=== PATIENT | female | born 1985 | race Caucasian/White ===

== ENCOUNTER 2019-12-27 17:13 | Emergency (ER) | payer MEDICAID, SELFPAY ==
[2019-12-27 17:14] VITALS: BP 117/79; PULSE 73; RESP 15; TEMP 36.7; O2SAT 96; BMI 25.3
--- NOTE | 2019-12-27 17:58 | RAD_ITS ---
STUDY: X-RAY - LEFT KNEE REASON FOR EXAM: Female, 34 years old. PATIENT FELL YESTERDAY. TECHNIQUE: 4 view(s) of the knee. COMPARISON: None. FINDINGS: No acute fracture, dislocation or osseous destruction. No significant joint space narrowing. No significant productive changes. No significant soft tissue swelling. IMPRESSION: Normal x-ray examination of the knee. Electronically Signed: Marco Antonio Varela, at 20:31 EST Tel , Service support , RAD/Knee 4 or More Views
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
--- NOTE | 2019-12-27 17:59 | RAD_ITS ---
STUDY: X-RAY - RIGHT KNEE REASON FOR EXAM: Female, 34 years old. PATIENT FELL YESTERDAY. TECHNIQUE: 4 view(s) of the knee. COMPARISON: None. FINDINGS: No acute fracture, dislocation or osseous destruction. No significant joint space narrowing. No significant productive changes. No significant soft tissue swelling. IMPRESSION: Normal x-ray examination of the knee. Electronically Signed: Marco Antonio Varela, at 19:56 EST Tel , Service support , RAD/Knee 4 or More Views
--- NOTE | 2019-12-27 17:59 | RAD_ITS ---
STUDY: X-RAY - LEFT FOOT CLINICAL: Female, 34 years old. PATIENT FELL YESTERDAY. TECHNIQUE: 3 view(s) of the foot. COMPARISON: None. FINDINGS: No acute fracture, dislocation or osseous destruction. No significant joint space narrowing. No significant productive changes. No significant soft tissue swelling. IMPRESSION: Normal x-ray examination of the foot. Electronically Signed: Marco Antonio Varela, at 20:47 EST Tel , Service support , RAD/Foot min 3 Views
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
[2019-12-27] MEDS: HYDROcodone Bitartrate/Apap 5/325 Tablet PO (18:16)
--- NOTE | 2019-12-27 18:25 | RAD_ITS ---
STUDY: X-RAY - LEFT ANKLE REASON FOR EXAM: Female, 34 years old. PATIENT FELL YESTERDAY. TECHNIQUE: 3 view(s) of the ankle. COMPARISON: None. FINDINGS: No acute fracture, dislocation or osseous destruction. No significant joint space narrowing. No significant productive changes. Moderate diffuse soft tissue swelling. IMPRESSION: Normal x-ray examination of the ankle. Electronically Signed: Marco Antonio Varela, at 20:46 EST Tel , Service support , RAD/Ankle min 3 Views
[2019-12-27 20:48] VITALS: BP 118/80; PULSE 80; RESP 15; O2SAT 98
== END 2019-12-27 20:49 | disposition home or self-care (01) ==
PROVIDERS: Emergency Provider Emergency Medicine; PCP Internal Medicine
DX: S82.831A Other fracture of upper and lower end of right fibula, initial encounter for closed fracture (principal); K21.9 Gastro-esophageal reflux disease without esophagitis; F17.200 Nicotine dependence, unspecified, uncomplicated; X50.1XXA Overexertion from prolonged static or awkward postures, initial encounter; Y93.01 Activity, walking, marching and hiking; Y92.009 Unspecified place in unspecified non-institutional (private) residence as the place of occurrence of the external cause; Y99.8 Other external cause status
CPT/HCPCS: 73564; 73610; 73630; 99283

== ENCOUNTER 2020-07-16 00:33 | Emergency (ER) | payer MEDICAID, SELFPAY ==
[2020-07-16 00:34] VITALS: BP 124/85; PULSE 105; RESP 16; TEMP 36.8; O2SAT 98; BMI 24.2
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
[2020-07-16] MEDS: Naproxen 500 MG Tablet PO (01:15)
[2020-07-16] MEDS: Gentamicin Sulfate 1 OPTH.BTL 2 DRP RIGHT EYE (01:36)
[2020-07-16] MEDS: Clindamycin HCl 150 MG Capsule 450 MG PO (01:36)
[2020-07-16] MEDS: Tetracaine 0.5% Ophthalmic Bottle 1 DRP RIGHT EYE (01:40)
[2020-07-16] MEDS: Fluorescein 1 MG STRIP 1 STRIP RIGHT EYE (01:40)
== END 2020-07-16 01:41 | disposition home or self-care (01) ==
PROVIDERS: Emergency Provider Emergency Medicine; PCP Internal Medicine
DX: H10.9 Unspecified conjunctivitis (principal); K21.9 Gastro-esophageal reflux disease without esophagitis; F17.200 Nicotine dependence, unspecified, uncomplicated
CPT/HCPCS: 99283

== ENCOUNTER 2020-10-31 08:26 | Emergency (ER) | payer MEDICAID, SELFPAY ==
[2020-10-31 08:15] VITALS: BP 134/107; PULSE 110; RESP 19; TEMP 36.7; O2SAT 99; BMI 23.1
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
--- NOTE | 2020-10-31 08:28 | EKG12_ITS ---
Test Reason : OVERDOSE Blood Pressure : / mmHG Vent. Rate : 078 BPM Atrial Rate : 078 BPM P-R Int : 158 ms QRS Dur : 084 ms QT Int : 404 ms P-R-T Axes : 068 056 054 degrees QTc Int : 460 ms Normal sinus rhythm Normal ECG Confirmed by AMANDO LOWERY, MADDIE ([id number]), newspaper or periodical editor LUKE SANDOVAL ([id number]) on 11/07/2020 9:09:48 AM Referred By: SERGE Confirmed By:HARRIS GOEL MD
--- NOTE | 2020-10-31 08:36 | NURSING ---
NO OLD EKGS
[2020-10-31] MEDS: 0.9% Normal Saline 1,000 ML 1000 ML IV (08:45)
[2020-10-31] MEDS: Ondansetron 4 MG/2 ML Vial IM (08:45)
[2020-10-31 08:54] LABS: Absolute Lymphocyte Count 1.92 X10^3/uL (0.83-4.51); Absolute Neutrophil Count 2.3 X10^3/uL (2.0-7.7); Basophil# 0.06 X10^3/uL; Basophil% 1.2 % (0-1); Eosinophil# 0.23 X10^3/uL; Eosinophils% 4.7 % (0-5); Hematocrit 48.7 % (37-47); Hemoglobin 15.8 g/dL (12.0-15.0); Lymphocyte # 1.92 X10^3/ul (4.0); Lymphocyte % 38.9 % (19-41); Mean Corp Hgb Conc 32.4 g/dL (32-36); Mean Corpuscular Hgb 31.7 pg (27.0-32.0); Mean Corpuscular Volume 97.8 fL (81-99); Mean Platelet Vol. 10.1 fl (6.2-12.0); Monocyte% 8.1 % (0-10); NRBC Flagged by Analyzer 0 % (0-5); Neutrophil # 2.29 X10^3/uL (2.7-7.7); Neutrophil % 46.3 % (47-70); Platelet Count 205 K/mm3 (150-450); RBC Distribution Width CV 14.3 % (11.6-14.6); RBC Distribution Width SD 47.8 fl (35.1-43.9); Red Blood Count 4.98 M/mm3 (4.2-5.4); White Blood Count 4.9 K/mm3 (4.4-11.0)
[2020-10-31 09:13] LABS: Anion Gap 6 (5-15); BUN 19 mg/dL (7-18); BUN/Creat Ratio 13.5 RATIO (10-20); Calcium,Total 8.3 mg/dL (8.5-10.1); Chloride 102 mmol/L (98-107); Creatinine, Serum 1.41 mg/dL (0.55-1.02); EST Glomerular Filtration Rate 46 mL/min (>60); Est Glom Filt Rate - Afr Amer 55 mL/min (>60); Estimated Creatinine Clearance 53.13 ml/min; Glucose 258 mg/dL (74-106); Potassium 4.3 mmol/L (3.5-5.1); Sodium Level 137 mmol/L (136-145)
--- NOTE | 2020-10-31 09:23 | RAD_ITS ---
STUDY: X-RAY CHEST REASON FOR EXAM: Female, 35 years old. Overdose TECHNIQUE: Single AP portable view of the chest. COMPARISON: None. FINDINGS: The lungs are clear and expanded. There is no demonstrated pleural abnormality. Normal size heart. Normal mediastinum and helga. Normal visualized pulmonary arteries. Normal visualized aortic arch and descending thoracic aorta. Normal visualized thoracic spine. Normal visualized ribs, clavicles, and shoulders. There is no demonstrated abnormality of the visualized soft tissue structures of the upper abdomen. RAD/Chest 1 View (Portable) IMPRESSION: Normal x-ray examination of the chest. Electronically Signed: Mega Rosales, at 10:10 EST Tel , Service support ,
[2020-10-31 10:21] LABS: Alcohol, Blood (Medical)-Serum < 3.0 mg/dL
[2020-10-31 10:33] LABS: Amphetamine Urine VISTA POSITIVE (<1000 ng/mL); Barbiturate Urine VISTA NEGATIVE (< 200 ng/mL); Benzodiazepine Urine VISTA NEGATIVE (< 200 ng/mL); Cocaine Urine VISTA NEGATIVE (< 300 ng/mL); Ecstacy Urine VISTA NEGATIVE (< 500 ng/mL); Methadone Urine VISTA NEGATIVE (< 300 ng/mL); PCP Urine VISTA NEGATIVE (< 25 ng/mL); THC Urine VISTA POSITIVE (< 50 ng/mL); Vista UDS pH Range 6
[2020-10-31 10:51] VITALS: BP 133/93; PULSE 90; RESP 23; O2SAT 100
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
--- NOTE | 2020-10-31 11:31 | CM.ED ---
Social Work Telephone call received from [facility], Jensen Go. Jensen able to confirm through talking with [facility] court that Ana Velarde has custody of patients children. Jensen reports will put information in system as informational but there will be nothing done with it. Hannah Salamanca MSW, BRIDGETTE-S
--- NOTE | 2020-10-31 11:45 | EKG12_ITS ---
Test Reason : REPEAT EKG Blood Pressure : / mmHG Vent. Rate : 057 BPM Atrial Rate : 057 BPM P-R Int : 148 ms QRS Dur : 084 ms QT Int : 448 ms P-R-T Axes : 062 066 055 degrees QTc Int : 436 ms Sinus bradycardia Otherwise normal ECG Confirmed by AMANDO LOWERY, MADDIE ([id number]), news assignment editor LUKE SANDOVAL ([id number]) on 11/07/2020 9:09:37 AM Referred By: SERGE Confirmed By:HARRIS GOEL MD
--- NOTE | 2020-10-31 12:16 | CM.ED ---
Social Work This social services assistant following up with patient in room for further support and to provide [facility] and [facility] resources. This social services assistant completing suicide assessment with patient. Patient denies suicidal thoughts and to have a desire to live. Patient states I want to get better for my kids. Patient reports main concern now is finding a ride back to [facility] house in [place]. Patient is currently pending further lab work. This social services assistant collaborating with patient and medical team and will follow up with patient to assist with transportation when/if patient is medically cleared for discharge. Patient provided with [facility] and [facility] resources. Will continue to follow. Hannah KWOK, STEFFEN
--- NOTE | 2020-10-31 12:38 | CM.ED ---
Social Work Per nursing staff patient will be ready for discharge by 13:30. Patient unsure of address but knows that it is on [address]. Patient reports to be the same address that patient was picked up by EMS which is [address] [place] [address]. Patient agreeable to this secondary social studies teacher setting up transportation through [facility] transportation services. Telephone call to [facility] Transportation, Kimber. Pick-up time set up for 13:30. Medical team and patient updated. Hannah KWOK, STEFFNE
[2020-10-31 13:11] VITALS: BP 128/96; PULSE 85; RESP 11; O2SAT 100
[2020-10-31 13:12] VITALS: BP 132/59; PULSE 95; RESP 22; O2SAT 97
--- NOTE | 2020-10-31 13:31 | CM.ED ---
Social Work Updated by nursing staff that patient friend is now coming to apple picking supervisor patient. Transportation canceled through [facility] Transportation. Hannah KWOK, GLENNS
== END 2020-10-31 13:17 | disposition home or self-care (01) ==
PROVIDERS: Emergency Provider Student in an Organized Health Care Education/Training Program
DX: R07.9 Chest pain, unspecified (principal); T40.1X1A Poisoning by heroin, accidental (unintentional), initial encounter; F15.10 Other stimulant abuse, uncomplicated; F12.10 Cannabis abuse, uncomplicated; K21.9 Gastro-esophageal reflux disease without esophagitis; F17.200 Nicotine dependence, unspecified, uncomplicated
CPT/HCPCS: 71045; 80048; 80307; 80320; 84484; 85025; 93005; 96360; 96361; 96372; 99285; J7030; A4216; G0480; J2405

== ENCOUNTER 2022-02-17 23:58 | Emergency (ER) | payer MEDICAID, SELFPAY ==
[2022-02-17 23:59] VITALS: BP 132/111; PULSE 102; RESP 16; TEMP 36.5; O2SAT 98; BMI 24.7
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
[2022-02-18] MEDS: HYDROcodone Bitartrate/Apap 5/325 Tablet PO (00:23)
[2022-02-18 00:33] LABS: Absolute Lymphocyte Count 1.89 X10^3/uL (0.83-4.51); Absolute Neutrophil Count 2.6 X10^3/uL (2.0-7.7); Basophil# 0.06 X10^3/uL; Basophil% 1.2 % (0-1); Eosinophils% 1.9 % (0-5); Hematocrit 44.3 % (37-47); Hemoglobin 14.4 g/dL (12.0-15.0); Lymphocyte # 1.89 X10^3/ul (0.83-4.51); Lymphocyte % 36.7 % (19-41); Mean Corp Hgb Conc 32.5 g/dL (32-36); Mean Corpuscular Hgb 29.8 pg (27.0-32.0); Mean Corpuscular Volume 91.5 fL (81-99); Mean Platelet Vol. 9.4 fl (6.2-12.0); Monocyte# 0.45 X10^3/uL; Monocyte% 8.7 % (0-10); NRBC Flagged by Analyzer 0 % (0-5); Neutrophil # 2.63 X10^3/uL (2.7-7.7); Neutrophil % 51.1 % (47-70); Platelet Count 306 K/mm3 (150-450); RBC Distribution Width CV 14.9 % (11.6-14.6); RBC Distribution Width SD 50.4 fl (35.1-43.9); Red Blood Count 4.84 M/mm3 (4.2-5.4); White Blood Count 5.2 K/mm3 (4.4-11.0)
[2022-02-18 01:20] LABS: Internal QC Validated? YES +Cl - CLEAR BKGD; Pregnancy, Serum, hCG Quali. NEGATIVE Negative
[2022-02-18 01:28] LABS: Anion Gap 5 (5-15); BUN 10 mg/dL (7-18); BUN/Creat Ratio 12.4 RATIO (10-20); Chloride 112 mmol/L (98-107); Creatinine, Serum 0.81 mg/dL (0.55-1.02); EST Glomerular Filtration Rate 86 mL/min (>60); Est Glom Filt Rate - Afr Amer 104 mL/min (>60); Glucose 93 mg/dL (74-106); Potassium 4.5 mmol/L (3.5-5.1); Sodium Level 139 mmol/L (136-145)
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
[2022-02-18 01:44] LABS: Color, Urine Yellow (Yellow); Glucose, Dipstick Normal (Normal); Ketone-Dipstick Negative (Negative); Leukocyte Esterase-Dipstick Negative /ul (Negative); Mucous, Urine 0 SEEN /hpf (<or=2+); Nitrite-Dipstick Negative (Negative); Occult Blood-Urine 10 /ul (Negative); Protein-Dipstick Negative (Negative); Red Blood Cells-Urine 0 SEEN /hpf (0-5); Specific Gravity, Urine 1.005 (1.002-1.030); Urine Bilirubin Dipstick Negative (Negative); Urine Clarity Clear (Clear); Urine Urobilinogen Normal (Normal); White Blood Cells 0 SEEN /hpf (0-5)
[2022-02-18 01:52] LABS: Amorphous Sediment R; Bacteria RARE /hpf (None Seen); Squamous Epithelial Cells - UA 0-5 SEEN /hpf (5-10)
[2022-02-18] MEDS: Ketorolac 30 MG/ML Syringe IV (02:41)
[2022-02-18 02:56] VITALS: BP 129/78; PULSE 91; RESP 16; O2SAT 98
== END 2022-02-18 02:57 | disposition home or self-care (01) ==
PROVIDERS: Emergency Provider Emergency Medicine; Visit Provider Emergency Medicine
DX: S30.1XXA Contusion of abdominal wall, initial encounter (principal); I50.9 Heart failure, unspecified; F17.210 Nicotine dependence, cigarettes, uncomplicated; S63.610A Unspecified sprain of right index finger, initial encounter; S00.83XA Contusion of other part of head, initial encounter; S16.1XXA Strain of muscle, fascia and tendon at neck level, initial encounter; Y04.8XXA Assault by other bodily force, initial encounter; K21.9 Gastro-esophageal reflux disease without esophagitis; Y93.9 Activity, unspecified; Y99.9 Unspecified external cause status; Y92.9 Unspecified place or not applicable
CPT/HCPCS: 70450; 70486; 72125; 73130; 74177; 80048; 81001; 84703; 85025; 96374; 99283; J7040; Q9967; A4216

== ENCOUNTER 2023-10-16 04:29 | Emergency (ER) | payer MEDICAID, SELFPAY ==
[2023-10-16 04:32] VITALS: BP 104/77; PULSE 80; RESP 18; TEMP 36.4; O2SAT 100; BMI 26.2
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
--- NOTE | 2023-10-16 04:38 | EDS_ITS ---
HPI HPI - Fall History of Present Illness Chief Complaint: Fall Informant: patient, family and EMS Narrative Narrative: 38-year-old female drinking heavily tonight fell down approximately 6-8 stairs. She complains mostly of pain in her left lower anterior chest, as well as both of her calves. She denies pain elsewhere. She has been nauseated and vomiting. PFSH PFS Medical History CHF (congestive heart failure) GERD (gastroesophageal reflux disease) Home Medications NK 02/18/22 [History Last Taken Unknown] Allergy/AdvReac Type Severity Reaction Status Date / Time Penicillins [PCN] Allergy PT UNABLE Verified 10/16/23 05:18 TO RESPOND-NEEDS F/U Social History Smoking Status: Current every day smoker tobacco type: cigarettes ROS ROS ED Constitutional Constitutional ED: Denies chills or fever(s) Eyes Eyes: Denies change in vision or diplopia ENT ENT ED: Denies ear pain, epistaxis, facial pain or rhinorrhea Cardiovascular Cardiovascular: Reports chest pain; Denies palpitations Respiratory/Chest Respiratory/Chest: Reports dyspnea; Denies cough Gastrointestinal Gastrointestinal: Reports abdominal pain, nausea and vomiting; Denies diarrhea or melena Genitourinary Genitourinary ED: Denies dysuria or hematuria Musculoskeletal Musculoskeletal: Reports extremity pain; Denies back pain Integumentary Denies abscess, Abrasions, laceration or rash Neurologic Neurologic: Denies confusion, headache(s), paresthesias or weakness Psychiatric Psychiatric: Denies suicidal ideation or suicidal thoughts EXAM Physical Exam Const Vital Signs: 10/16/23 04:32 10/16/23 05:15 10/16/23 05:15 Temperature 97.5 F L Temperature Source Temporal Pulse Rate 80 Respiratory Rate 18 Respiratory Effort Normal Respiratory Depth Normal Respiratory Pattern Normal Blood Pressure 104/77 Blood Pressure Mean 86 Pulse Ox 100 Oxygen Delivery Method Room Air Room Air Room Air 10/16/23 05:41 Temperature Temperature Source Pulse Rate 85 Respiratory Rate 21 H Respiratory Effort Respiratory Depth Respiratory Pattern Blood Pressure 110/86 H Blood Pressure Mean 94 Pulse Ox 100 Oxygen Delivery Method Room Air Positive well nourished and well developed General Appearance ED: well developed and NAD HEENT Reports TM's clear and nasal mucous membranes and turbinates normal atraumatic Face and Sinus: Negative for facial tenderness Tympanic Membrane ED: Yes TM's clear Eyes PERRL and EOMs intact bilaterally Eyes Narrative: horiz nystagmus Visual Acuity: other Other Details: no entrapment or pain with extraocular movements Neck full ROM and supple General: Negative for tenderness Chest Wall inspection of chest normal Chest Narrative: left mid and lower anterior ribcage/chest wall; no deformity/flail, no palpable crepitance Chest: symmetrical chest wall rise and tenderness; Negative for crepitus Resp normal respiratory effort and clear to auscultation bilaterally Resp Narrative: + BS bilat; trachea midline Percussion: other equal BS bilat Cardio no murmurs Rate: regular rate Rhythm: regular rhythm GI normal to inspection, nondistended, normoactive bowel sounds, soft to palpation and non-tender Back/Spine normal ROM Cervical Spine: Negative for cervical spine tenderness Thoracic Spine / Upper Back: Negative for thoracic spinal tenderness Lumbar Spine / Lower Back: Negative for lumbar spinal tenderness Extremity normal to inspection and full ROM General Extremety ED: Negative for tenderness Neuro oriented x3, CN's II-XII intact bilaterally, moves all extremities, no focal motor deficits and no sensory deficits noted Axel Coma Scale: document GCS findings Spontaneous Obeys Commands Oriented 15 Sensorium / Orientation: awake and alert Psych Psych Narrative: grossly intoxicated Attitude: agitated Mood & Affect: anxious and tearful Skin no wounds Lesions: no lesions Rashes: no rashes MDM MDM MDM Narrative Medical decision making narrative: Concern here for thoracic and intra-abdominal blunt injury, and since the patient is vomiting and intoxicated, CT of the head and cervical spine also indicated. Stat portable chest x-ray was ordered initially, in order to ensure patient did not have a pneumothorax, however CT came to get her promptly, and I was okay with her going to CT given her hemodynamic stability even without labs and , which did come back and were noted, negative. I reviewed the CT images, she does not appear to have any acute intracranial injury, she does appear to have a spleen injury with associated intra-abdominal bleeding, as well as multiple nearby rib fractures on the left side and a small pulmonary contusion. She is hemodynamically and clinically stable after fentanyl, Zofran, IV fluids, with blood pressure actually increased to 110/86, there is no signs of acute anemia, and I am ordering her more fluids prior to transfer. She will require going to a trauma center. Patient prefers something in [place] since she has a [place] address. Discussed with ED physician at [facility] Dr. Reyes, who accepts the patient. I am okay with her going by ground since her blood pressures have been stable, with the understanding that certainly she has the potential for decompensation, we will monitor her closely until transport arrives. She appeared to have multiple rib fractures but after discussing with the radiologist, most of them appear to be old/chronic, but she has at least 1 new fracture given that it is in proximity to her pulmonary contusion. Radiologist documented that there is a small pneumothorax, which he did not tell me over the phone. Clinically this patient is stable for transport without a thoracostomy, she is doing much better after analgesics and IV fluids and is not dyspneic at rest and it is tiny. BP 105/81 w/ pulse 60 at 0710 - another fentanyl 50mcg to be given, EMS here for transport. History & Record Review Additional record(s) reviewed:: Prior ED visit Lab Data Attestation: I reviewed the patient's lab results. Labs: Laboratory Results - last 24 hr 10/16/23 05:05 WBC 19.6 H RBC 4.79 Hgb 14.6 Hct 46.0 MCV 96.0 MCH 30.5 MCHC 31.7 L RDW Std Deviation 48.0 H RDW Coeff of Stephen 13.5 Plt Count 344 MPV 9.7 Immature Gran % (Auto) 0.500 Neut % (Auto) 86.8 H Lymph % (Auto) 7.2 L [place] % (Auto) 5.0 Eos % (Auto) 0.2 Baso % (Auto) 0.3 Absolute Neuts (auto) 17.0 H Absolute Lymphs (auto) 1.40 Nucleated RBC % 0 Sodium 141 Potassium 3.6 Chloride 110 H Carbon Dioxide 25.0 Anion Gap 6 BUN 12 Creatinine 1.27 H Estim Creat Clear Calc 48.43 Est GFR (MDRD) Af Amer 61 Est GFR (MDRD) Non-Af 51 L BUN/Creatinine Ratio 9.4 L Glucose 174 H Calcium 8.5 Total Bilirubin 0.30 AST 43 H ALT 28 Alkaline Phosphatase 134 H Total Protein 7.2 Albumin 3.3 Globulin 3.9 Albumin/Globulin Ratio 0.8 L Serum , Qual NEGATIVE Ethyl Alcohol 228.0 Radiography Diagnostic Testing: Clinical Impression(s) from Imaging Studies Brain CT 10/16/23 04:35 IMPRESSION: No acute intracranial hemorrhage in this noncontrast head CT. Electronically Signed: Niko Kovacs MD at 5:54 EST , Cervical Spine CT 10/16/23 04:35 IMPRESSION: Cervical spine without evidence of acute fracture. Electronically Signed: Niko Kovacs MD at 6:07 EST , Chest/Abdomen/Pelvis CT 10/16/23 04:35 IMPRESSION: Significant splenic laceration involving the hilum, consistent with grade 4 laceration, with large amount of hemorrhage throughout the abdomen. Small left anterior pneumothorax with pulmonary contusion and overlying rib fracture. Critical finding results discussed with Dr. Walker at 0616 hours eastern time 10/16/2023. N.B. : The above Results were Read Back by Niko Kovacs MD to Woo Walker MD, and understanding confirmed on 10/16/2023 06:19:07 (ET). Electronically Signed: Niko Kovacs MD at 6:24 EST , ADDENDUM: 10/16/23 0631 IMPRESSION: Significant splenic laceration involving the hilum, consistent with grade 4 laceration, with large amount of hemorrhage throughout the abdomen. Small left anterior pneumothorax with pulmonary contusion and overlying rib fracture. Critical finding results discussed with Dr. Walker at 0616 hours eastern time 10/16/2023. N.B. : The above Results were Read Back by Niko Kovacs MD to Woo Walker MD, and understanding confirmed on 10/16/2023 06:19:07 (ET). Electronically Signed: Niko Kovacs MD at 6:24 EST , I reviewed CT images as well as the reports and I agree with them. Rhythm Strip Rhythm Strip: Sinus Rhythm Rate: 85 Ectopy: None Management Discussion w/another healthcare provider: Medical Doctor Nuclear Medicine and Radiologist Critical Care Time Critical Care Time: Yes Critical care time (excluding procedures): 30-74 minutes (33 min), Including time spent:, Discussing w/Patient &/or Family/Coding Compliance Manager, Discussing w/Consultants, Arranging Admission or Transfer and Performing Direct Patient Care at Bedside Discharge Plan Triage Chief Complaint: Fall ED Provider: Woo Walker Dx/Rx/DC Orders Clinical Impression: Traumatic injury of spleen, Fall down stairs, Alcohol intoxication, Left pulmonary contusion, Left rib fracture Prescriptions: No Action NK Primary Care Provider: Care Physician,No Primary Referrals: Care Physician,No Primary [Primary Care Provider] -
[2023-10-16] MEDS: Ondansetron 4 MG/2 ML Vial IV (05:06)
[2023-10-16] MEDS: fentaNYL 100 MCG/2 ML Ampul 50 MCG IV ×2 (05:06→07:12)
[2023-10-16] MEDS: 0.9% Normal Saline (1000mL) 1,000 ML 999 ML IV ×2 (05:06→06:38)
[2023-10-16 05:25] LABS: Basophil# 0.06 X10^3/uL; Basophil% 0.3 % (0-1); Eosinophil# 0.03 X10^3/uL; Eosinophils% 0.2 % (0-5); Hemoglobin 14.6 g/dL (12.0-15.0); Lymphocyte % 7.2 % (19-41); Mean Corp Hgb Conc 31.7 g/dL (32-36); Mean Corpuscular Hgb 30.5 pg (27.0-32.0); Mean Platelet Vol. 9.7 fl (6.2-12.0); Monocyte# 0.98 X10^3/uL; NRBC Flagged by Analyzer 0 % (0-5); Neutrophil # 17.01 X10^3/uL (2.7-7.7); Neutrophil % 86.8 % (47-70); Platelet Count 344 K/mm3 (150-450); RBC Distribution Width CV 13.5 % (11.6-14.6); Red Blood Count 4.79 M/mm3 (4.2-5.4); White Blood Count 19.6 K/mm3 (4.4-11.0)
[2023-10-16 05:39] LABS: Internal QC Validated? YES +Cl - CLEAR BKGD; Pregnancy, Serum, hCG Quali. NEGATIVE Negative
[2023-10-16 05:41] VITALS: BP 110/86; PULSE 85; RESP 21; O2SAT 100
[2023-10-16 05:43] LABS: ALB/GLOB Ratio 0.8 RATIO (0.9-2.4); AST(SGOT) 43 U/L (15-37); Alanine Aminotransfer ALT/SGPT 28 U/L (13-56); Albumin, Serum 3.3 g/dL (3.2-5.0); Alkaline Phosphatase 134 U/L (45-117); Anion Gap 6 (5-15); BUN 12 mg/dL (7-18); BUN/Creat Ratio 9.4 RATIO (10-20); Calcium,Total 8.5 mg/dL (8.5-10.1); Chloride 110 mmol/L (98-107); Creatinine, Serum 1.27 mg/dL (0.55-1.02); EST Glomerular Filtration Rate 51 mL/min (>60); Est Glom Filt Rate - Afr Amer 61 mL/min (>60); Estimated Creatinine Clearance 48.43 ml/min; Globulin 3.9 g/dL (2.2-4.2); Glucose 174 mg/dL (74-106); Potassium 3.6 mmol/L (3.5-5.1); Protein, Total 7.2 g/dL (6.4-8.2); Sodium Level 141 mmol/L (136-145)
[2023-10-16 07:11] VITALS: BP 105/81; PULSE 55; RESP 17; O2SAT 95
== END 2023-10-16 07:31 | disposition short-term general hospital (02) ==
PROVIDERS: Emergency Provider Emergency Medicine; Visit Provider Emergency Medicine
DX: S36.039A Unspecified laceration of spleen, initial encounter (principal); I50.9 Heart failure, unspecified; F10.129 Alcohol abuse with intoxication, unspecified; S27.0XXA Traumatic pneumothorax, initial encounter; F17.210 Nicotine dependence, cigarettes, uncomplicated; W10.9XXA Fall (on) (from) unspecified stairs and steps, initial encounter; S22.32XA Fracture of one rib, left side, initial encounter for closed fracture
CPT/HCPCS: 70450; 71260; 72125; 74177; 80053; 82077; 84703; 85025; 87811; 96361; 96374; 96375; 96376; 99285; J7030; Q9967; A4216; J2405

== ENCOUNTER 2024-01-05 05:42 | Emergency (ER) | payer MEDICAID, SELFPAY ==
[2024-01-05 05:48] VITALS: BP 143/93; PULSE 87; RESP 16; TEMP 36.7; O2SAT 98; BMI 24.7
--- NOTE | 2024-01-05 06:01 | CT_ITS ---
EXAM: CT MAXILLOFACIAL WITHOUT INTRAVENOUS CONTRAST CLINICAL INDICATION: injury TECHNIQUE: Helically acquired images were obtained of the face without intravenous contrast. This CT exam was performed using one or more of the following dose reduction techniques: automated exposure control, adjustment of the mA and/or kV according to patient size, and/or use of iterative reconstruction technique. RADIATION DOSE: CTDIvol = 29.38 mGy, DLP = 628.26 mGy-cm COMPARISON: February 18, 2022. FINDINGS: BONES/JOINTS: There are multiple fracture fragments at the inferior aspect of the maxilla alveolar ridge inferiorly, best seen on the sagittal images but they appear at least mildly corticated and at least subacute. Subtle fracture of the nasal bridge is best seen on sagittal image, new from prior exam but nondisplaced. No discrete lytic or blastic abnormalities. No obviously acute-appearing fracture. No intrasinus fluid. SOFT TISSUES: There is moderate soft tissue swelling anterior to the mandible, greater on the left. New stabilization plates at the anterolateral mandible bridging at least subacute fracture lines. There is some callus at both fracture line, no shania cortical destruction. No discrete fluid collections. ORBITS: Unremarkable. Both globes are unremarkable. Extraocular muscles are normal. Retrobulbar fat appears unremarkable. SINUSES: Mild mucosal thickening in the floor of the left maxillary sinus and slight mucosal thickening in left sphenoid sinus. MASTOID AIR CELLS: Unremarkable as visualized. Clear. DENTAL: The maxilla and mandible are edentulous. No periodontal osseous erosion. CT/Sinus/Facial Bone IMPRESSION: 1. Postoperative changes of the mandible are new from 2021 but the underlying fractures are at least subacute- chronic. At least subacute fragments projecting inferiorly from the anterior maxillary alveolar ridge and subacute nasal bone changes. 2. Soft tissue swelling anterior to the mandible, greater on the left. No discrete drainable fluid collection on limited unenhanced CT. 3. Mild shotty cervical nodes appear similar to prior exam. Electronically Signed: Deann Saenz MD at 7:15 EST Reading Location ID and State: [facility] / [place] Tel , Service support ,
[2024-01-05] MEDS: Ondansetron 4 MG/2 ML Vial IV (06:06)
[2024-01-05] MEDS: Morphine 4 MG/ML Syringe IV (06:06)
--- NOTE | 2024-01-05 06:40 | RAD_ITS ---
EXAM: XR BILATERAL RIBS AND AP CHEST, 3 OR MORE VIEWS CLINICAL INDICATION: pain TECHNIQUE: Frontal and oblique views of the bilateral ribs and frontal view of the chest. COMPARISON: No relevant prior studies available. FINDINGS: LUNGS AND PLEURAL SPACES: Unremarkable. No consolidation or edema. No pneumothorax. No effusion. HEART: Unremarkable. Cardiac silhouette not enlarged. MEDIASTINUM: Central airways and mediastinal contour are unremarkable. BONES/JOINTS: Mildly displaced right lateral 9th rib fracture. Healing left lateral seventh through 10th rib fractures. RAD/Ribs Griffin Min 4V w/PA Chest IMPRESSION: Mildly displaced right lateral 9th rib fracture. Electronically Signed: Jeff Parsons MD at 7:11 EST ,
[2024-01-05] MEDS: HYDROmorphone 1 MG/ML Syringe IV (06:44)
--- OUTSIDE RECORDS SUMMARY | 2024-01-05 07:01 | XMS RPT_ITS | CCD ---
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 file Attends anabaptist service: Not on file Active member of club or organization: Not on file Attends meetings of clubs or organizations: Not on file Relationship status: Not on file Other Topics Concern Not on file Social History Narrative Not on file MEDs: No current outpatient medications on file prior to encounter. ALL: No Known Allergies ROS: Review of Systems Positives and pertinent negatives as per HPI. All other systems were reviewed and are negative. Physical Exam: Patient Vitals for the past 24 hrs: BP Temp Temp src Pulse Resp SpO2 Height Weight 09/24/20 2030 109/73 09/24/20 1655 116/85 98.1 F (36.7 C) Oral 89 16 99 % 5' 3 59 kg (130 lb) Physical Exam Vitals signs and nursing note reviewed. Constitutional: General: She is not in acute distress. Appearance: She is well-developed. She is ill-appearing. HENT: Head: Normocephalic and atraumatic. Nose: Nose normal. Eyes: General: No scleral icterus. Conjunctiva/sclera: Conjunctivae normal. Neck: Musculoskeletal: Full passive range of motion without pain, normal range of motion and neck supple. Cardiovascular: Rate and Rhythm: Normal rate and regular rhythm. Heart sounds: No murmur. Pulmonary: Effort: Pulmonary effort is normal. No respiratory distress. Breath sounds: Normal breath sounds. Abdominal: Palpations: Abdomen is soft. Tenderness: There is generalized abdominal tenderness. There is no right CVA tenderness, left CVA tenderness, guarding or rebound. Comments: Reports she is still very nauseated Musculoskeletal: Right lower leg: She exhibits no swelling. No edema. Left lower leg: She exhibits no swelling. No edema. Skin: General: Skin is warm and dry. Findings: No rash. Neurological: Mental Status: She is alert and oriented to person, place, and time. Psychiatric: Mood and Affect: Mood normal. Laboratory & Radiological Imaging (if done): Labs Reviewed BASIC METABOLIC PANEL - Abnormal; Notable for the following components: Result Value Anion Gap 9 (*) Calcium 8.2 (*) All other components within normal limits Narrative: The eGFR should be used for monitoring renal function only and not for medication dosing. LIPASE - Abnormal; Notable for the following components: Lipase 65 (*) All other components within normal limits URINALYSIS - Abnormal; Notable for the following components: Blood, Urine Moderate (*) WBCs, Urine 6 (*) Bacteria, Urine Rare (*) Squamous Epithelial 8 (*) All other components within normal limits Narrative: Microscopic examination is performed on all urinalysis samples and only positive findings are reported. The test for blood on the chemical analytic portion of urinalysis may also be positive due to hemoglobinuria and myoglobinuria and if red blood cells are present they are quantified by microscopic examination. CBC WITH AUTO DIFFERENTIAL - Abnormal; Notable for the following components: Hematocrit 47.0 (*) All other components within normal limits COVID-19/INFLUENZA A,B MOLECULAR - Normal Narrative: This test was performed under the FDA's Emergency Use Authorization (EUA). Testing was performed using the [employer] SARS-CoV-2 & Influenza A/B Nucleic Acid Test on the [employer] [place] System. This test has not been approved for use in asymptomatic patients and its performance in this patient population has not been evaluated. Negative results do not rule out the presence of SARS-CoV-2, influenza A, and/or influenza B. Fact sheets for the EUA can be found at the following links: For Healthcare Providers: https://www.[place].gov/media/074260/download For Patients: https://www.[place].gov/media/455417/download HCG, SERUM, QUALITATIVE - Normal Narrative: Negative: The result is less than or equal to 5 mIU/mL of HCG. HEPATIC FUNCTION PANEL - Normal CBC AND DIFFERENTIAL Narrative: The following orders were created for panel order CBC w/ Diff. Procedure Abnormality Status --------- ------ CBC Auto Differential[[id number]] Abnormal Final result Please view results for these tests on the individual orders. CT Abdomen Pelvis With IV Contrast Only Final Result Mild wall thickening of the rectosigmoid colon is seen, suggestive of mild infectious versus inflammatory colitis. Mild mesenteric fat stranding is seen in the posterior lower pelvis. No abnormal fluid collection is seen. Mild diffuse wall thickening of the urinary bladder is also seen, which may represent mild inflammatory process/cystitis. Please correlate clinically. Small air-fluid levels are seen in the small bowel, suggestive of generalized ileus and possible enteritis. High density is seen in the appendix suggestive of internal calcification and/or proteinaceous material. However, no periappendiceal or pericecal inflammatory changes are seen to suggest acute appendicitis. Workstation ID: [id number] MDM: Special isolation precautions are in place with signage outside this patient's room. This EMAIL CAMPAIGN MANAGER performs hand hygiene and enters the patient room wearing: ? gloves ? an appropriately fitting (N-95, PAPR, Aura) mask ? face shield ? protective gown to obtain HPI and perform bedside physical exam and re- evaluation(s)/interventions as necessary. See provider documentation. ED Course as of Sep 24 2220 Sat Sep 24, [id number] Discussed all findings with patient and plan for surgical consult. Patient verbalizes understanding. She continues to appear painful reports continued nausea. She is tearful. [SS] 2048 IMPRESSION: Mild wall thickening of the rectosigmoid colon is seen, suggestive of mild infectious versus inflammatory colitis. Mild mesenteric fat stranding is seen in the posterior lower pelvis. No abnormal fluid collection is seen. Mild diffuse wall thickening of the urinary bladder is also seen, which may represent mild inflammatory process/cystitis. Please correlate clinically. Small air-fluid levels are seen in the small bowel, suggestive of generalized ileus and possible enteritis. High density is seen in the appendix suggestive of internal calcification and/or proteinaceous material. However, no periappendiceal or pericecal inflammatory changes are seen to suggest acute appendicitis. [SS] 2100 Lipase(!): 65 [SS] 2100 RBCs: 4.99 [SS] 2100 HGB: 14.6 [SS] 2100 HCT(!): 47.0 [SS] 2100 Beta-hCG Qual: Negative [SS] 2100 SARS-CoV-2: Not Detected [SS] 2100 Influenza A: Not Detected [SS] 2100 Influenza B: Not Detected [SS] 2100 Blood, Urine(!): Moderate [SS] 2100 WBCs, Urine(!): 6 [SS] 2100 Bacteria, Urine(!): Rare [SS] 2100 Mucus, Urine: Rare [SS] 2100 Squamous Epithelial(!): 8 [SS] 220 Patient relayed to surgery she would prefer to go home and follow-up as outpatient. Will begin antibiotics prior to discharge and discharged home with Augmentin, burst of steroids and Zofran for possible infectious colitis based on CT results. Patient is aware she will return to the emergency department at any time. [SS] ED Course User Index [SS] Radha Munoz CNP Discussed surgical consult for colonoscopy. Home care, red flags and when to return to the emergency department. Patient verbalizes understanding and is very agreeable with all. Clinical Impression: 1. Abnormal CT scan, sigmoid colon 2. Colitis 3. Nausea vomiting and diarrhea Disposition: Patient is being discharge home. New Prescriptions amoxicillin-clavulanate (AUGMENTIN) 875-125 mg per tablet Take 1 (one) tablet by mouth 2 (two) times a day for 10 days . predniSONE (DELTASONE) 20 MG tablet Take 2 (two) tablets (40 mg total) by mouth daily for 5 days . ondansetron (Zofran ODT) 4 MG disintegrating tablet Dissolve 1 (one) tablet (4 mg total) on top of tongue every 8 (eight) hours as needed for nausea . IVETTE Herrera ED Advanced Practice Provider [facility] Emergency Department (Please note that portions of this note have been completed with a voice recognition software. Efforts were made to correct any errors, but occasionally words are mis-transcribed.) Radha Munoz CNP 09/24/200 This nurse answered call from patient's mother. Pts mother requested to know what was going on due to the length of time for patients visit. This nurse advised patients mother that the doctor ordered a CT scan and may take some time still. PTs mother stated to call her back when she is ready. Patient ambulatory to restroom to provide urine sample. ED PROVIDER NOTE [facility] EM[facility]ENC[facility] NAME: Delbert Ann AGE: 35 y.o. : 1985 VISIT DATE: 09/24/2020 CSN: [id number] PCP: Physician No Chief Complaint Patient presents with Emesis Patient presents to ED with complaints of abdominal pain nausea vomiting and diarrhea intermittently over the last week. No exposures to known Covid positive individuals. Daily smoker, occasional EtOH and marijuana use. Past Medical History: Diagnosis Date CHF (congestive heart failure) (HCC) Past Surgical History: Procedure Laterality Date CHOLECYSTECTOMY History reviewed. No pertinent family history. Social History Socioeconomic History Marital status: Single Spouse name: Not on file Number of children: Not on file Years of education: Not on file Highest education level: Not on file Occupational History Not on file Social Needs Financial resource strain: Not on file Food insecurity Worry: Not on file Inability: Not on file Transportation needs Medical: Not on file Non-medical: Not on file Tobacco Use Smoking status: Current Every Day Smoker Packs/day: 0.50 Types: Cigarettes Smokeless tobacco: Never Used Substance and Sexual Activity Alcohol use: Yes Frequency: Never Comment: occasional Drug use: Yes Frequency: 3.0 times per week Types: Marijuana Sexual activity: Not on file Lifestyle Physical activity Days per week: Not on file Minutes per session: Not on file Stress: Not on file Relationships Social connections Talks on phone: Not on file Gets together: Not on file Attends anabaptist service: Not on file Active member of club or organization: Not on file Attends meetings of clubs or organizations: Not on file Relationship status: Not on file Other Topics Concern Not on file Social History Narrative Not on file No current outpatient medications on file prior to encounter. No Known Allergies Review of Systems Constitutional: Negative. HENT: Negative. Respiratory: Negative. Cardiovascular: Negative. Gastrointestinal: Positive for abdominal pain, diarrhea, nausea and vomiting. Negative for abdominal distention, anal bleeding, blood in stool, constipation and rectal pain. Genitourinary: Negative. Musculoskeletal: Negative. Skin: Negative. Neurological: Negative. Psychiatric/Behavioral: Negative. Patient Vitals for the past 24 hrs: BP Temp Temp src Pulse Resp SpO2 Height Weight 09/24/20 1655 116/85 98.1 F (36.7 C) Oral 89 16 99 % 5' 3 59 kg (130 lb) Physical Exam Constitutional: Appearance: Normal appearance. HENT: Head: Comments: HEENT exam deferred given current Covid pandemic Cardiovascular: Rate and Rhythm: Normal rate and regular rhythm. Pulses: Normal pulses. Heart sounds: Normal heart sounds. Pulmonary: Effort: Pulmonary effort is normal. Breath sounds: Normal breath sounds. Abdominal: General: Abdomen is flat. Bowel sounds are normal. Palpations: Abdomen is soft. Tenderness: There is abdominal tenderness. Musculoskeletal: Normal range of motion. Skin: General: Skin is warm and dry. Capillary Refill: Capillary refill takes less than 2 seconds. Neurological: General: No focal deficit present. Mental Status: She is alert and oriented to person, place, and time. Laboratory & Radiographic Imaging (if done): Results for orders placed or performed during the hospital encounter of 09/24/20 COVID-19/Influenza A,B Molecular Specimen: Nasopharyngeal; Swab Result Value Ref Range SARS-CoV-2 Not Detected Not Detected Influenza A Not Detected Not Detected Influenza B Not Detected Not Detected Lavender Top Result Value Ref Range Extra Tube Hold for add-ons. Mint Green Top Result Value Ref Range Extra Tube Hold for add-ons. Gold Top Result Value Ref Range Extra Tube Hold for add-ons. Light Blue Top Result Value Ref Range Extra Tube Hold for add-ons. BMP Result Value Ref Range Sodium 138 135 - 145 mmol/L Potassium 4.8 3.5 - 5.1 mmol/L Chloride 107 98 - 108 mmol/L Bicarbonate 27 21 - 32 mmol/L Anion Gap 9 (L) 10 - 20 mmol/L Glucose 88 65 - 99 mg/dL BUN 14 8 - 25 mg/dL Creatinine 0.93 0.40 - 1.10 mg/dL eGFR 81 >=60 mL/min/1.73 m2 eGFR 93 >=60 mL/min/1.73 m2 BUN/Creatinine Ratio 15.1 10.0 - 20.0 Calcium 8.2 (L) 8.4 - 10.2 mg/dL Lipase Result Value Ref Range Lipase 65 (L) 73 - 393 U/L Urinalysis Result Value Ref Range Color, Urine Yellow Colorless, Yellow Clarity, Urine Clear Clear Specific [place] 1.025 1.005 - 1.025 pH, Urine 7.0 5.0 - 7.0 Protein, Urine Negative Negative mg/dL Glucose, Urine Negative Negative mg/dL Ketones, Urine Negative Negative mg/dL Bilirubin, Urine Negative Negative Urobilinogen, Urine <2.0 <2.0 mg/dL Blood, Urine Moderate (A) Negative Nitrite, Urine Negative Negative Leukocyte Esterase, Urine Negative Negative WBCs, Urine 6 (H) 0 - 5 /hpf RBCs, Urine 1 0 - 3 /hpf Bacteria, Urine Rare (A) None Seen /hpf Squamous Epithelial 8 (H) 0 - 4 /hpf Mucus, Urine Rare None Seen, Rare /lpf HCG (QUALITATIVE) Result Value Ref Range Beta-hCG Qual Negative Negative CBC Auto Differential Result Value Ref Range WBC 8.68 4.50 - 11.00 K/mcL RBC 4.99 4.00 - 5.20 M/mcL Hemoglobin 14.6 12.0 - 16.0 g/dL Hematocrit 47.0 (H) 36.0 - 46.0 % MCV 94.2 80.0 - 100.0 fL MCH 29.3 26.0 - 34.0 pg MCHC 31.1 31.0 - 37.0 g/dL Platelets 267 150 - 400 K/mcL RDW - CV 14.0 11.6 - 14.8 % MPV 9.6 9.4 - 12.4 fL Neutrophils 71.9 % Lymphocytes 18.8 % Monocytes 6.6 % Eosinophils 1.7 % Basophils 0.5 % IG Percent 0.50 % Neutrophils Abs 6.25 1.70 - 7.00 K/mcL Lymphocytes Abs 1.63 0.90 - 4.00 K/mcL Monocytes Abs 0.57 0.30 - 0.90 K/mcL Eosinophils Abs 0.15 0.00 - 0.50 K/mcL Basophils Abs 0.04 0.00 - 0.30 K/mcL IG Absolute 0.04 0.00 - 0.30 K/mcL Nucleated RBC 0.0 % Nucleated RBC Abs 0.00 0.00 - 0.00 K/mcL CT Abdomen Pelvis With IV Contrast Only (Results Pending) Procedures MDM Number of Diagnoses or Management Options Diagnosis management comments: Labs unremarkable, UA negative for infection. negative. Covid and influenza negative. Patient was given normal saline bolus and dose of Zofran, upon reevaluation, states that her nausea is much better, however, she still continues to have abdominal pain. We will proceed to CT scan at this time. Endorsed patient to JONAH Garcia at the conclusion of my shift, she will follow-up and determine disposition. The patient has been informed that they may have pre-hypertension or hypertension based on a blood pressure reading in the Emergency Department. I recommend that the patient call the primary care provider listed on their discharge instructions or a physician of their choice as soon as possible to arrange follow-up in the next 4 weeks for further evaluation of possible pre-hypertension or hypertension. . Clinical Impression: No diagnosis found. ED Disposition None Follow-up Information Follow-up information has not been specified. Contact information for after-discharge care Follow-up information has not been specified. Celina Buenrostro CNP 09/24/201908 Celina EMAIL CAMPAIGN MANAGER bedside Pt reports having nausea and vomiting starting a week ago. PT also has complaint of abdominal pain associated with diarrhea. PT denies being currently. PT denies shortness of breath. documented in this encounter Assessment & Plan Note - Lori Manning CNP - 09/24/2020 8:52 PM EST Miscellaneous Notes (unrecog nized section and content) Associated Problem(s): Enteritis . documented in this encounter FOR RECORDS PERTAINING TO PATIENTS WHO ARE OR HAVE BEEN ENROLLED IN A CHEMICAL DEPENDENCY/SUBSTANCEABUSE PROGRAM, SOME INFORMATION MAY BE OMITTED. This clinical summary was aggregated from multiple sources. Caution should be exercised in using it in the provision of clinical care. This summary normalizes information from multiple sources, and as a consequence, information in this document may materially change the coding, format and clinical context of patient data. In addition, data may be omitted in some cases. CLINICAL DECISIONS SHOULD BE BASED ON THE PRIMARY CLINICAL RECORDS. [employer] [facility]. provides no warranty or guarantee of the accuracy or completeness of information in this document.
--- NOTE | 2024-01-05 07:46 | ED.RN ---
Pt. gave verbal permission to update sister Eneida.
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
[2024-01-05 08:25] VITALS: BP 139/107; PULSE 81; RESP 20; TEMP 36.4; O2SAT 98
== END 2024-01-05 08:34 | disposition home or self-care (01) ==
PROVIDERS: Emergency Provider Emergency Medicine; Visit Provider Emergency Medicine
DX: S22.31XA Fracture of one rib, right side, initial encounter for closed fracture (principal); I50.9 Heart failure, unspecified; S02.670A Fracture of alveolus of mandible, unspecified side, initial encounter for closed fracture; Y04.8XXA Assault by other bodily force, initial encounter; F17.210 Nicotine dependence, cigarettes, uncomplicated; K21.9 Gastro-esophageal reflux disease without esophagitis; S02.2XXA Fracture of nasal bones, initial encounter for closed fracture
CPT/HCPCS: 70486; 71111; 96374; 96375; 99282; A4216; J2405